=== PATIENT | male | born 1980 | race Caucasian/White ===

== ENCOUNTER 2019-11-18 10:30 | Observation (INO) | payer OTHER, SELFPAY ==
[2019-11-18] VITALS (17 sets, daily range): BP systolic 99–160; BP diastolic 56–83; PULSE 52–144; RESP 8–35; TEMP 36.5–37; O2SAT 96–100; BMI 30.8; BMI 31.5
--- NOTE | 2019-11-18 10:47 | DI.RAD.S_ITS ---
PROCEDURE: XR CHEST 1V INDICATIONS: syncope, new onset Afib TECHNIQUE: One view of the chest was acquired. COMPARISON: None. FINDINGS: Surgical changes and devices: None. Lungs and pleura: Lungs are clear. No pleural effusions or pneumothorax. Mediastinum: Mediastinal contours appear normal. Heart size is normal. Bones and chest wall: No suspicious bony lesions. Overlying soft tissues appear unremarkable. IMPRESSION: No acute cardiopulmonary process demonstrated radiographically. Dictated by: Aftab Hewitt M.D. on 11/18/2019 at 11:25 Approved by: Aftab Hewitt M.D. on 11/18/2019 at 11:26
[2019-11-18 11:02] LABS: Add Manual Diff / Slide Review NO; Basophils Absolute Auto 100 /uL (0-100); Basophils Percent Auto 1.3 % (0-2); Eosinophils Absolute Auto 400 /uL (0-450); Eosinophils Percent Auto 7.3 % (2-4); Hematocrit 46.1 % (41-53); Hemoglobin 15.4 g/dL (13.5-17.5); Lymphocytes Absolute Auto 1600 /uL (1100-4500); Lymphocytes Percent Auto 27.4 % (25-40); Mean Corpuscular HGB Conc 33.5 % (30-36); Mean Corpuscular Hemoglobin 30.4 PG (26-34); Mean Corpuscular Volume 90.7 fL (80-100); Monocytes Absolute Auto 700 /uL (0-900); Monocytes Percent Auto 11.5 % (3-14); Neutrophils Absolute Auto 3100 /uL (1500-7000); Neutrophils Percent Auto 52.5 % (50-75); Platelet Count 250 X10^3/uL (150-400); Red Blood Cell Count 5.08 X10^6/uL (4.5-5.9); Red Cell Distribution Width 12.4 % (11.6-14.8); White Blood Cell Count 5.9 X10^3/uL (4.5-11.0)
[2019-11-18] MEDS: SODIUM CHLORIDE 0.9% 1,000 ML 150 ML IV (11:05)
--- NOTE | 2019-11-18 11:07 | ED.SYNCOPE ---
HPI - Syncope General Chief Complaint: Syncope Stated Complaint: passed out Time Seen by Provider: 11/18/19 10:35 Source: patient Mode of arrival: Ambulatory Limitations: no limitations History of Present Illness HPI narrative: 39M nonsmoker without significant medical history presents to emergency department today with his in the chief complaint a syncopal episode this morning. He has felt a bit fatigued over the past few days he complains only of a scratchy throat prior to today. He woke up feeling approximately the same and after walking up a flight of stairs (with no dizziness or lightheadedness) he went to the bathroom and collapsed. His found him and states that he was briefly confused for less than 1 minute and then returned to his baseline. He denies any dietary change, new medications or supplements. He denies any caffeine, nicotine or alcohol. Related Data Home Medications Medication Instructions Recorded Confirmed escitalopram oxalate 20 mg PO BEDTIME 11/18/19 11/18/19 Allergies Allergy/AdvReac Type Severity Reaction Status Date / Time No Known Drug Allergies Allergy Verified 11/18/19 10:34 Review of Systems Constitutional Constitutional: Denies chills, Denies fatigue, Denies fever(s), Denies frequent falls, Denies lethargy and Denies weakness Eyes Eyes: Denies change in vision, Denies eye discharge, Denies irritation and Denies loss of vision ENT Ears, Nose, Mouth, and Throat: Denies change in voice, Denies dizziness, Denies neck pain, Denies sore throat and Denies throat swelling Cardiovascular Cardiovascular: Denies chest pain, Denies irregular heart rhythm, Reports lightheadedness, Denies palpitations, Denies dyspnea, Denies dyspnea on exertion and Denies orthopnea Respiratory Respiratory: Denies cough, Denies dyspnea, Denies dyspnea on exertion and Denies wheezing Gastrointestinal Gastrointestinal: Denies abdominal pain, Denies change in bowel habits, Denies diarrhea, Denies nausea and Denies vomiting Musculoskeletal Musculoskeletal: Denies neck pain and Denies numbness Integumentary/Breasts Skin/Breast: Denies pruritus, Denies erythema, Denies rash and Denies wounds Neurologic Neurologic: Denies behavioral changes, Denies confusion, Denies dizziness, Denies frequent falls, Denies loss of vision, Denies numbness and Denies weakness Psychiatric Psychiatric: Denies anxiety, Denies behavioral changes, Denies confusion, Denies depression, Denies homicidal ideation and Denies suicidal ideation Endocrine Endocrine: Denies fatigue, Denies flushing and Denies palpitations Hematologic/Lymphatic Hematologic/Lymphatic: Denies easy bruising Allergic/Immunologic Allergic/Immunologic: Denies urticaria, Denies throat swelling and Denies wheezing Patient History Medical History Anxiety (Acute) Depression (Acute) Surgical History History of endoscopy (Acute) Family History Father Heart attack Mother Diabetes mellitus Sister Husyrwc-Ymaqg-Hzodf disease Brother Healthy adult Brother Healthy adult Social History household members: spouse Smoking Status: Never smoker alcohol intake: current Smoking Status: Never smoker alcohol intake frequency: 0-2 drinks per day Substance Use Type: does not use Exam Narrative Exam Narrative: GENERAL: [39] year old patient appears stated age. Well-nourished, well-developed patient, in mild distress. HEAD: Atraumatic. Normocephalic. EYES: Pupils equal round and reactive. Extraocular motions intact. No scleral icterus. No injection or drainage. ENT: Nose without bleeding, purulent drainage. Throat without erythema, tonsillar hypertrophy or exudate. Airway patent. NECK: Trachea midline. Non tender CARDIOVASCULAR: Tachycardic and irregular without murmurs, gallops, or rubs. RESPIRATORY: Clear to auscultation. Breath sounds equal bilaterally. No wheezes, rales, or rhonchi. GASTROINTESTINAL: Abdomen soft, non-tender, nondistended. EXTREMITIES: No edema or joint tenderness. BACK: Nontender without deformity or crepitance. No flank tenderness. NEURO: AOx3. SKIN: No rash or erythema of visible areas Initial Vital Signs Initial Vital Signs: Vital Signs Temperature 97.7 F 11/18/19 10:34 Pulse Rate 62 11/18/19 10:34 Respiratory Rate 16 11/18/19 10:34 Blood Pressure 105/82 11/18/19 10:34 Pulse Oximetry 100 11/18/19 10:34 Course Orders Ordered: ED Orders 11/18/19 10:34 EKG-12 Lead Stat 11/18/19 10:47 XR chest 1V Stat 11/18/19 10:50 Complete Blood Count AUTO DIFF Stat Comprehensive Metabolic Panel Stat Magnesium Stat NT-proBNP (BNP-Adult 18+) Stat Prolactin Stat Prothrombin Time INR Stat TSH w/ Reflex to FT4 Stat Troponin & CK Cardiac Panel Stat 11/18/19 13:27 EC echo doppler complete Stat 11/18/19 14:05 Urinalysis and Microscopic Stat Urine Drug Screen, Rapid Stat Acetaminophen (Tylenol) 650 mg PO Q6HR PRN PRN Reason: Fever/Mild Pain (1-3) Al Hydrox/Mg Hydrox/Simethicone (Maalox Plus) 30 ml PO Q6HR PRN PRN Reason: Dyspepsia Apixaban (Eliquis) 5 mg PO BID SHINE Bisacodyl (Dulcolax) 10 mg [place] DAILY PRN PRN Reason: Constipation Calcium Carbonate (Tums) 1,000 mg PO Q4HR PRN PRN Reason: Dyspepsia Escitalopram Oxalate (Lexapro) 20 mg PO BEDTIME SHINE DILTIAZEM (Diltiazem 125 Mg/125 Ml-[id number]) 125 mg in 125 mls @ 5 mls/hr IV TITRATE SHINE; Protocol Last Titration: 11/18/19 15:18 Dose: 7 mg/hr, 7 mls/hr Documented by: Titration: 11/18/19 13:30 Dose: 10 mg/hr, 10 mls/hr Documented by: Titration: 11/18/19 13:23 Dose: 5 mg/hr, 5 mls/hr Documented by: Admin: 11/18/19 12:01 Dose: 5 mg/hr, 5 mls/hr Documented by: ROBERTO Magnesium Hydroxide (Milk Of Magnesia) 30 ml PO DAILY PRN PRN Reason: Constipation Metoprolol Tartrate (Lopressor) 25 mg PO Q6H [facility] Last Admin: 11/18/19 19:10 Dose: Not Given Documented by: Admin: 11/18/19 14:02 Dose: 25 mg Documented by: REYNOLD Naloxone HCl (Narcan) 0.2 mg IV Q2MIN PRN PRN Reason: Opiate Reversal Ondansetron HCl (Zofran) 4 mg IV Q4HR PRN PRN Reason: Nausea And Vomiting Discontinued Medications Apixaban (Eliquis) 5 mg PO NOW ONE Stop: 11/18/19 11:44 Last Admin: 11/18/19 12:01 Dose: 5 mg Documented by: ROBERTO Sodium Chloride (Normal Saline 0.9%) 1,000 mls @ 150 mls/hr IV CONT SHINE Last Infusion: 11/18/19 13:23 Dose: 150 mls/hr Documented by: Admin: 11/18/19 11:05 Dose: 150 mls/hr Documented by: ROBERTO Consultations Consultation #1: discussion with manager environmental affairs cardiology (Morris) who recommends admission, tele, echo, dilt drip, eliquis and will see him as an outpatient patient PCP called also Consultation #2: hospitalist happy to accept Vital Signs Vital signs: Vital Signs - 8 hr 11/18/19 11:57 11/18/19 12:00 11/18/19 12:07 Pulse Rate 144 H 114 H 128 H Respiratory Rate 13 8 L 18 Blood Pressure 119/73 Pulse Oximetry 98 97 98 11/18/19 12:23 11/18/19 12:25 Pulse Rate 108 H 102 H Respiratory Rate 20 18 Blood Pressure 136/79 136/79 Pulse Oximetry 98 96 MDM - Syncope Lab Data Result diagrams: 11/18/19 10:50 11/18/19 10:50 Labs: Lab Results 11/18/19 11/18/19 11/18/19 Range/Units 10:50 10:50 10:50 WBC 5.9 (4.5-11.0) X10^3/uL RBC 5.08 (4.5-5.9) X10^6/uL Hgb 15.4 (13.5-17.5) g/dL Hct 46.1 (41-53) % MCV 90.7 (80-100) fL MCH 30.4 (26-34) PG MCHC 33.5 (30-36) % RDW 12.4 (11.6-14.8) % Plt Count 250 (150-400) X10^3/uL Neut % (Auto) 52.5 (50-75) % Lymph % (Auto) 27.4 (25-40) % [place] % (Auto) 11.5 (3-14) % Eos % (Auto) 7.3 H (2-4) % Baso % (Auto) 1.3 (0-2) % Neut # (Auto) 3100 (4197-2353) /uL Lymph # (Auto) 1600 (6714-1919) /uL [place] # (Auto) 700 (0-900) /uL Eos # (Auto) 400 (0-450) /uL Baso # (Auto) 100 (0-100) /uL PT 10.9 (10.1-12.7) SECONDS INR 1.0 (0.9-1.3) Sodium (137-145) mmol/L Potassium (3.4-5.1) mmol/L Chloride (98-107) mmol/L Carbon Dioxide (22-32) mmol/L BUN (9-20) mg/dL Creatinine (0.66-1.25) mg/dL Estimated GFR (>60) mL/min BUN/Creatinine Ratio (6-22) Glucose (70-100) mg/dL Calcium (8.4-10.2) mg/dL Magnesium 2.0 (1.6-2.3) mg/dL Total Bilirubin (0.2-1.3) mg/dL AST (17-59) IU/L ALT (<50) IU/L Alkaline Phosphatase (38-126) U/L Total Creatine Kinase (55-170) U/L CK-MB (CK-2) CK-MB (CK-2) Rel Index Troponin I (0.01-0.034) ng/mL NT-Pro-B Natriuret Pep 24 (<125) pg/mL Total Protein (6.3-8.2) g/dL Albumin (3.5-5.0) g/dL Globulin (1.7-4.1) g/dL Albumin/Globulin Ratio (1.0-2.8) TSH (0.47-4.68) uIU/mL Prolactin 15.4 (3.7-17.9) ng/mL COVID-19 PCR (Negative) 11/18/19 11/18/19 11/18/19 Range/Units 10:50 10:50 12:15 WBC (4.5-11.0) X10^3/uL RBC (4.5-5.9) X10^6/uL Hgb (13.5-17.5) g/dL Hct (41-53) % MCV (80-100) fL MCH (26-34) PG MCHC (30-36) % RDW (11.6-14.8) % Plt Count (150-400) X10^3/uL Neut % (Auto) (50-75) % Lymph % (Auto) (25-40) % [place] % (Auto) (3-14) % Eos % (Auto) (2-4) % Baso % (Auto) (0-2) % Neut # (Auto) (4158-4057) /uL Lymph # (Auto) (0342-6970) /uL [place] # (Auto) (0-900) /uL Eos # (Auto) (0-450) /uL Baso # (Auto) (0-100) /uL PT (10.1-12.7) SECONDS INR (0.9-1.3) Sodium 138 (137-145) mmol/L Potassium 4.2 (3.4-5.1) mmol/L Chloride 104 (98-107) mmol/L Carbon Dioxide 29 (22-32) mmol/L BUN 17 (9-20) mg/dL Creatinine 1.02 (0.66-1.25) mg/dL Estimated GFR > 60.0 (>60) mL/min BUN/Creatinine Ratio 16.7 (6-22) Glucose 79 (70-100) mg/dL Calcium 9.8 (8.4-10.2) mg/dL Magnesium (1.6-2.3) mg/dL Total Bilirubin 0.7 (0.2-1.3) mg/dL AST 29 (17-59) IU/L ALT 30 (<50) IU/L Alkaline Phosphatase 47 (38-126) U/L Total Creatine Kinase 97 (55-170) U/L CK-MB (CK-2) TNP CK-MB (CK-2) Rel Index TNP Troponin I < 0.012 (0.01-0.034) ng/mL NT-Pro-B Natriuret Pep (<125) pg/mL Total Protein 7.0 (6.3-8.2) g/dL Albumin 4.3 (3.5-5.0) g/dL Globulin 2.7 (1.7-4.1) g/dL Albumin/Globulin Ratio 1.6 (1.0-2.8) TSH 2.98 (0.47-4.68) uIU/mL Prolactin (3.7-17.9) ng/mL COVID-19 PCR Negative (Negative) Point of Care Testing Glucose POC 92 Urine Dip Bedside Urine Glucose Negative Bedside Urine Bilirubin - Negative Bedside Urine Ketone - Negative Urine Specific [place] 1.015 Bedside Urine Occult Blood - Negative Bedside Urine pH 6.0 Bedside Urine Protein - Negative Bedside Urine Urobilinogen - Negative Bedside Urine Nitrite - Negative Bedside Urine Leukocytes - Negative Esterase Critical Care Time Critical Care Time Critical Care Time: Yes Total Critical Care Time: 30 Attestation: The high probability of a clinically significant, sudden or life threatening deterioration of the [CV] system(s) required my full and direct attention, intervention and personal management. The aggregate critical care time was [30] minutes. This time is in addition to time spent performing reported procedures but includes the following: [X] Data Review and interpretation [X] Patient assessment and monitoring of vital signs [X] Documentation [X] Medication orders and management Discharge Plan Departure Patient Disposition: Admitted as Observation Clinical Impression: Atrial fibrillation with RVR Syncope Qualifiers: Syncope type: unspecified Qualified Code(s): R55 - Syncope and collapse Discharge Date/Time: 11/18/19 13:28 Instructions: DI for Atrial Flutter, Apixaban Admit Date/Time: 11/18/19 12:27 Admit Provider: Gloria Barahona
[2019-11-18 11:09] LABS: Prothrombin Time 10.9 SECONDS (10.1-12.7)
[2019-11-18 11:16] LABS: Alanine Aminotransferase 30 IU/L (<50); Albumin 4.3 g/dL (3.5-5.0); Albumin Globulin Ratio 1.6 (1.0-2.8); Alkaline Phosphatase 47 U/L (38-126); Aspartate Aminotransferase 29 IU/L (17-59); BUN Creatinine Ratio 16.7 (6-22); Bilirubin Total 0.7 mg/dL (0.2-1.3); Blood Urea Nitrogen 17 mg/dL (9-20); Calcium 9.8 mg/dL (8.4-10.2); Carbon Dioxide 29 mmol/L (22-32); Chloride 104 mmol/L (98-107); Creatine Kinase 97 U/L (55-170); Estimated Glomerular Filt Rate > 60.0 mL/min (>60); Globulin 2.7 g/dL (1.7-4.1); Glucose 79 mg/dL (70-100); HEMOLYSIS < 15 (0-50); Potassium 4.2 mmol/L (3.4-5.1); Sodium 138 mmol/L (137-145)
[2019-11-18 11:24] LABS: NT-proBNP (BNP-Adult 18+) 24 pg/mL (<125)
[2019-11-18 11:27] LABS: Troponin I < 0.012 ng/mL (0.01-0.034)
[2019-11-18 11:32] LABS: Prolactin 15.4 ng/mL (3.7-17.9)
[2019-11-18] MEDS: DILTIAZEM 125 MG/125 ML PIGGYBACK IV (12:01)
[2019-11-18] MEDS: APIXABAN 5 MG TABLET PO ×2 (12:01→21:28)
[2019-11-18 13:11] LABS: COVID19 -Nasal RAPID Negative (Negative)
[2019-11-18] MEDS: METOPROLOL IR 25 MG TABLET PO (14:02)
[2019-11-18 14:27] LABS: Bacteria Urine None Seen; RBC Urine None Seen (0-5/HPF); WBC Urine None Seen (0-5/HPF)
--- NOTE | 2019-11-18 14:28 | DI.ECHO.S_ITS ---
Echocardiogram Report + + :Name: DELVIS THAO Study Date: 11/18/2019 Height: 74 in : :Hospital Weight: 240 lb : : Gender: Male BSA: 2.3 m2 : :: 1980 Age: 39 yrs BP: 103/70 mmHg: :Reason For Study: AFIB : :Ordering Physician: [place] : :Hospitalist Performed By: Kimberly Ferrer : :Referring: RESHMA FOLEY : + + Interpretation Summary The left ventricle is normal in size. Left ventricular ejection fraction is estimated to be 55 +/- 5%. The right ventricle is mildly dilated. Right ventricular systolic function is at the lower limits of normal. No significant valvular pathology seen. The IVC is of normal diameter and collapses greater than 50% with a sniff. This suggests a low right atrial pressure of 3 mm Hg. Procedure: A two-dimensional transthoracic echocardiogram with color flow and Doppler was performed. The study quality was technically adequate. There is no prior echocardiogram noted for this patient. The patient was in atrial fibrillation with heart rates between 60-75 bpm during the exam. Left Ventricle: The left ventricle is normal in size. There is mild concentric left ventricular hypertrophy. There is no thrombus. Left ventricular ejection fraction is estimated to be 55 +/- 5%. There are no focal wall motion abnormalities. Diastolic function could not be accurately assessed due to atrial fibrillation. Right Ventricle: The right ventricle is mildly dilated. Right ventricular systolic function is at the lower limits of normal. Atria: Both atria are normal in size. There is no Doppler evidence for an interatrial shunt. Mitral Valve: The mitral valve is normal in structure and function. There is trace mitral regurgitation. Aortic Valve: The aortic valve is trileaflet. The aortic valve opens well. There is no aortic valve stenosis. No aortic regurgitation is present. Tricuspid Valve: The tricuspid valve is normal. Pulmonary artery pressures cannot be estimated because of the lack of a measurable TR jet velocity but the IVC suggests a CVP of around 3 mmHg. There is trace tricuspid regurgitation. Pulmonic Valve: The pulmonic valve leaflets are thin and pliable; valve motion is normal. There is mild pulmonic regurgitation. Great Vessels: The aortic root is normal size. The dimensions of the ascending aorta are normal. The IVC is of normal diameter and collapses greater than 50% with a sniff. This suggests a low right atrial pressure of 3 mm Hg. Pericardium/ Pleura There is no pericardial effusion. There is no pleural effusion. MMode/2D Measurements & Calculations LVIDd: 4.4 cm LVOT diam: 2.3 cm LVIDs: 3.2 cm Ao root diam: 3.2 cm FS: 26.7 % asc Aorta Diam: 3.0 cm EPSS: 1.3 cm Ao Arch Diam (Prox Trans): 2.4 cm IVSd: 1.2 cm LVPWd: 0.86 cm LV carrillo. diameter/BSA (cm/m^2): 1.9 LV sys. diameter/BSA (cm/m^2): 1.4 LA A2 area: 16.7 cm2 RA long axis: 4.9 cm LA A4 area: 15.6 cm2 RA area: 16.8 cm2 LA length (vol): 4.5 cm RA vol: 48.5 ml LA vol: 49.2 ml RA : 20.6 ml/m2 LA vol index: 21.0 ml/m2 IVC diam: 1.4 cm RVD1 (basal): 4.0 cm TAPSE: 2.1 cm Doppler Measurements & Calculations Ao V2 max: 93.3 cm/sec LVOT Max Xavier: 83.6 cm/sec Ao V2 mean: 62.6 cm/sec LV V1 max P.8 mmHg Ao max P.5 mmHg LV V1 VTI: 15.2 cm Ao mean P.8 mmHg KIRAN(I,D): 3.5 cm2 Ao V2 VTI: 18.3 cm KIRAN(V,D): 3.8 cm2 sev ratio: 0.83 KIRAN indexed to BSA (cm^2/m^2): 1.5 MV E max xavier: 70.7 cm/sec PA V2 max: 48.4 cm/sec Med Peak E' Xavier: 13.1 cm/sec PA V2 mean: 36.1 cm/sec E/E' med: 5.4 PA mean P.57 mmHg Lat Peak E' Xavier: 18.1 cm/sec PA pr(Accel): 29.3 mmHg E/E' lat: 3.9 E/e' average: 4.7 MV dec time: 0.22 sec SV(LVOT): 64.2 ml Reading Physician:03:42 PM
[2019-11-18 14:30] LABS: TSH w/ Reflex to FT4 2.98 uIU/mL (0.47-4.68)
[2019-11-18 14:31] LABS: Appearance Urine UA CLEAR; Bilirubin Urine UA NEGATIVE (NEGATIVE); Color Urine UA YELLOW; Glucose Urine UA NEGATIVE (Negative); Ketones Urine UA NEGATIVE (NEGATIVE); Leukocyte Esterase Urine UA NEGATIVE (NEGATIVE); Nitrite Urine UA NEGATIVE (Negative); Occult Blood Urine UA NEGATIVE (Negative); Protein Urine UA NEGATIVE (Negative); Specific Gravity Urine UA <=1.005 (1.000-1.035); Urobilinogen Urine UA 0.2 E.U./dL (0.2); pH Urine UA 6.5 (4.5-8.0)
[2019-11-18 14:44] LABS: Culture Indicated Urine Cult Not Indicated
[2019-11-18 14:48] LABS: UR Morphine/Opiate cutoff 300 Negative (Negative); Ur Creatinine Normal (Normal); Ur Specific Gravity Normal (Normal); Urine Amphetamines Negative (Negative); Urine Barbiturates Negative (Negative); Urine Benzodiazepines Negative (Negative); Urine Cocaine Negative (Negative); Urine MDMA Negative (Negative); Urine Methadone Negative (Negative); Urine Methamphetamines Negative (Negative); Urine Oxycodone Negative (Negative); Urine Phencyclidine Negative (Negative); Urine Tetrahydrocannabinol Negative (Negative); Urine Tricyclic Antidepressant Negative (Negative); Urine pH Normal (Normal)
--- NOTE | 2019-11-18 14:58 | PC.NURSE ---
Admit Note Pt arrived to room 229 at 1325 from ER. Walked self from stretcher to bed, steady on feet. Two large areas of erythema to back from falling in bathroom - fell while urinating in the bathroom, felt short of breath at the time. Currently denies shortness of breath and denies chest pain. No dizziness reported. Afib RVR in the 120s on arrival, diltiazem gtt infusing at 5 mg/hr, increased to 10 mg/hr. Metoprolol PO administered per MD order. HR now in the 60-70s, remains in afib. Oriented to room and to bed/tv/call light controls. Denies to lock up any valuables in safe. Call light within reach.
--- NOTE | 2019-11-18 15:46 | P.HP_ITS ---
History of Present Illness History of Present Illness Date Patient Seen: 11/18/19 Chief complaint: passed out Narrative: Dk Storm is a 39-year-old male with a past medical history significant for depression and anxiety who presented to the ED after having a syncopal episode at home. The patient reports that he woke up in his normal state of health and was downstairs talking to work when he decided to go back up stairs and lay down as he was still tired. He went to the bathroom and then awoke in the bath tub. His reports she heard a fall and came in to find him in the bathtub moaning. He believes he lost consciousness but does not believe he injured his head. He has an abrasion on his back and reports his back is tender. When he arrived to the emergency department he was found to be in atrial fibrillation with RVR. He endorses mild fluttering in his chest that he noticed starting on the way to the hospital. He has never been diagnosed atrial fibrillation previously. He has no other complaints and denies vision changes, lightheadedness or dizziness, chest pain or pressure, shortness of breath, abdominal pain, nausea, vomiting, fever, chills, dysuria, diarrhea or constipation. He reports he recently had a mild sore throat which has now resolved. He also reports several episodes over the last couple weeks of fleeting shortness of breath and feeling winded while speaking that occurred while at work and he assumed was related to wearing a mask. He has no other complaints. ED course: The patient was found to be in atrial fibrillation with RVR and heart rate in the 140s. ED physician spoke with cardiology who recommended diltiazem gtt and blood thinner. The the patient's laboratory evaluation was unremarkable including CBC, CMP, magnesium, and urinalysis. EKG demonstrated atrial fibrillation without acute ischemic changes such as ST elevation or depression. The patient was started on diltiazem gtt and given a dose of Eliquis 5 mg x 1. The patient is being admitted observation for atrial fibrillation with RVR and syncopal episode. Patient History Medical History Anxiety (Acute) Depression (Acute) Surgical History History of endoscopy (Acute) Family & Social History Family History Father Heart attack Mother Diabetes mellitus Sister Beisekz-Qiele-Bjoty disease Brother Healthy adult Brother Healthy adult Safety & Behavioral: Feels Safe in Current Yes Environment Been Physically Hurt or No Threatened By a Person Tobacco & Substance use: Smoking Status Never smoker alcohol intake frequency None Substance Use Type None Meds Home Medications and Allergies Home Medications Medication Instructions Recorded Confirmed Type escitalopram oxalate 20 mg PO BEDTIME 11/18/19 11/18/19 History Allergies Allergy/AdvReac Type Severity Reaction Status Date / Time No Known Drug Allergies Allergy Verified 11/18/19 10:34 Review of Systems Review of Systems Narrative: A 10 system comprehensive review of systems was conducted with the patient and found to be negative except as above in the History of Present Illness. Exam Vital Signs (past 8 hours): - 11/18/19 10:34 11/18/19 11:10 11/18/19 11:57 Temperature 97.7 F Pulse Rate 62 111 H 144 H Respiratory Rate 16 20 13 Blood Pressure 105/82 113/83 Pulse Oximetry 100 96 98 11/18/19 12:00 11/18/19 12:07 11/18/19 12:23 Temperature Pulse Rate 114 H 128 H 108 H Respiratory Rate 8 L 18 20 Blood Pressure 119/73 136/79 Pulse Oximetry 97 98 98 11/18/19 12:25 11/18/19 12:30 11/18/19 12:31 Temperature Pulse Rate 102 H 141 H 119 H Respiratory Rate 18 35 H 19 Blood Pressure 136/79 160/71 H Pulse Oximetry 96 97 98 11/18/19 12:46 11/18/19 13:00 Temperature Pulse Rate 123 H 97 H Respiratory Rate 25 H 16 Blood Pressure 128/56 L 129/68 Pulse Oximetry 98 97 Oxygen Delivery Method Room Air Narrative Exam Narrative: General: Young male sitting in bed and in no acute distress, well-developed, well-nourished, appropriately interactive. HEENT: Normocephalic, atraumatic. External ears without defect. Pupils equal, round, and reactive to light. Anicteric sclerae, moist conjunctivae, and no lid lag. Oropharynx free of erythema and cobble stoning with moist mucosa. Neck: Supple with full range of motion. No jugular venous distension. No bruits. No lymphadenopathy or thyromegaly. Cardiovascular: Irregularly irregular without murmurs, rubs, or gallops appreciated Pulmonary: Clear to auscultation bilaterally without crackles, wheezes, or rhonchi. Normal respiratory effort with no use of accessory muscles. Abdomen: Soft, bowel sounds present, nontender, nondistended. No hepatosplenome gómez or masses appreciated. Extremities: No clubbing, cyanosis, or edema. Skin: Normal temperature, turgor, and texture; no rash, ulcers, or subcutaneous nodules appreciated. 10 cm abrasion/scrape on right side of back without skin tear. Neurological: Cranial nerves grossly intact. Normal muscle strength, tone, and bulk. Reflexes, coordination, and sensory function within normal limits. No known gait impairment. Psychiatric: Normal mood and affect. Alert and oriented to person, place, and ti me. Objective Labs Result Diagrams: 11/18/19 10:50 11/18/19 10:50 Labs: Laboratory Results - last 24 hr 11/18/19 11/18/19 11/18/19 10:50 10:50 10:50 WBC 5.9 RBC 5.08 Hgb 15.4 Hct 46.1 MCV 90.7 MCH 30.4 MCHC 33.5 RDW 12.4 Plt Count 250 Neut % (Auto) 52.5 Lymph % (Auto) 27.4 [place] % (Auto) 11.5 Eos % (Auto) 7.3 H Baso % (Auto) 1.3 Neut # (Auto) 3100 Lymph # (Auto) 1600 [place] # (Auto) 700 Eos # (Auto) 400 Baso # (Auto) 100 PT 10.9 INR 1.0 Sodium Potassium Chloride Carbon Dioxide BUN Creatinine Estimated GFR BUN/Creatinine Ratio Glucose Calcium Magnesium 2.0 Total Bilirubin AST ALT Alkaline Phosphatase Total Creatine Kinase CK-MB (CK-2) CK-MB (CK-2) Rel Index Troponin I NT-Pro-B Natriuret Pep 24 Total Protein Albumin Globulin Albumin/Globulin Ratio Prolactin 15.4 COVID-19 PCR 11/18/19 11/18/19 10:50 12:15 WBC RBC Hgb Hct MCV MCH MCHC RDW Plt Count Neut % (Auto) Lymph % (Auto) [place] % (Auto) Eos % (Auto) Baso % (Auto) Neut # (Auto) Lymph # (Auto) [place] # (Auto) Eos # (Auto) Baso # (Auto) PT INR Sodium 138 Potassium 4.2 Chloride 104 Carbon Dioxide 29 BUN 17 Creatinine 1.02 Estimated GFR > 60.0 BUN/Creatinine Ratio 16.7 Glucose 79 Calcium 9.8 Magnesium Total Bilirubin 0.7 AST 29 ALT 30 Alkaline Phosphatase 47 Total Creatine Kinase 97 CK-MB (CK-2) TNP CK-MB (CK-2) Rel Index TNP Troponin I < 0.012 NT-Pro-B Natriuret Pep Total Protein 7.0 Albumin 4.3 Globulin 2.7 Albumin/Globulin Ratio 1.6 Prolactin COVID-19 PCR Negative Assessment & Plan Assessment & Plan narrative: Dk Storm is a 39-year-old male with a past medical history significant for depression and anxiety who presented to the ED after having a syncopal episode at home. 1. Newly diagnosed atrial fibrillation with RVR, present on admission. Active. -Patient presented after having unwitnessed syncopal episode at home with brief loss of consciousness and no head injury. -EKG demonstrated atrial fibrillation with controlled ventricular rate of 100 home without acute ischemic changes such as ST elevation or depression. Continue to monitor closely on telemetry. -Patient was started on diltiazem gtt in ED. Started metoprolol tartrate 25 mg every 6 hours and will titrate to effect. Slowly titrate off of diltiazem gtt as heart rate allows. -Received Eliquis 5 mg x 1 in ED. CHADS2 Vasc score is 0 indicative of low risk of VTE. Discussed anticoagulation and risk of VTE based on current parameters. Patient would like some time to consider long-term anticoagulation and awaiting echocardiogram and diabetic assessment for full risk assessment. -Risk stratify with hemoglobin A1c and fasting lipid panel ordered for tomorrow morning labs and pending. -Electrolytes within normal limits with potassium 4.2 and magnesium 2.0. Continue to monitor electrolytes and replete if necessary. -TSH within normal limits at 2.98. -Ordered echocardiogram, pending. -Recommend outpatient sleep study to evaluate for EVA and treatment if present. 2. Acute syncopal episode, not present on admission. Resolved. -Patient had unwitnessed syncopal episode with brief loss of consciousness and without head injury. -Possibly reflexive in secondary to vasovagal syncope versus atrial fibrillation with RVR. -Continue to monitor closely on telemetry. -Continue to treat atrial fibrillation as above. 3. Depression with anxiety, chronic, present on admission. Stable. -Continue escitalopram 20 mg daily at bedtime. Code status: Full code, surrogate decision maker is designated as patient's spouse Divina Storm VTE prophylaxis: Zoequrandolph SCDs Patient is admitted under observation status with expected length of stay less than 2 midnights due to severity of presenting symptoms, risk of adverse event, and complexity of treatment plan.
--- NOTE | 2019-11-18 18:53 | PC.NURSE ---
Addendum entered by Prabha Young R.N. 11/18/19 19:00: [id number] pt converted to SR with a heart rate of 60, Provider notified, no new orders Original Note: Evening shift note: Pt resting in bed, with at bedside. Diltiazem gtt infusing at 10mg/hr, NS infusing at 150ml/hr. Heart rate currently AFib HR in 45-60's, pt asymptomatic. Titrated Dilt gtt to 7ml/hr as HR began staying down in the 40-[address] Barahona at bedside, orders given to stop Dilt gtt at 1627 for HR staying at 44. All current questions answered, no further needs at this time, bed low and locked, call light within reach, will continue to monitor.
[2019-11-18] MEDS: ESCITALOPRAM 10 MG TABLET 20 MG PO (21:28)
[2019-11-19 00:33] VITALS: BP 114/67; PULSE 67; RESP 12; TEMP 36.4; O2SAT 99
[2019-11-19 04:45] VITALS: BP 123/68; PULSE 63; RESP 12; TEMP 36.2; O2SAT 96
[2019-11-19 05:16] LABS: Cholesterol 234 mg/dL (140-199); HDL Cholesterol 31 mg/dL (40-60); Hemoglobin A1C% w Est Avg Glu 5.1 % (4.0-6.0); LDL Cholesterol Calculated 157 mg/dL (<100); Triglycerides 228 mg/dL (35-150)
--- NOTE | 2019-11-19 06:36 | PC.NURSE ---
Pt alert and oriented x3. Denies chest pain or SOB. Denies any pain, reports on slight discomfort on back. SBA. No complaints
[2019-11-19 06:44] VITALS: BP 133/79; PULSE 60
[2019-11-19] MEDS: METOPROLOL IR 25 MG TABLET PO (06:44)
[2019-11-19 08:07] VITALS: BP 101/57; PULSE 66; RESP 12; TEMP 36.6; O2SAT 99
--- NOTE | 2019-11-19 08:31 | P.DS_ITS ---
History of Present Illness History of Present Illness Date Patient Seen: 11/19/19 Chief complaint: passed out Narrative: Dk Storm is a 39-year-old male with a past medical history si gnificant for depression and anxiety who presented to the ED after having a syncopal episode at home. The patient reports that he woke up in his normal state of health and was downstairs talking to work when he decided to go back up stairs and lay down as he was still tired. He went to the bathroom and then awoke in the bath tub. His reports she heard a fall and came in to find him in the bathtub moaning. He believes he lost consciousness but does not believe he injured his head. He has an abrasion on his back and reports his back is tender. When he arrived to the emergency department he was found to be in atrial fibrillation with RVR. He endorses mild fluttering in his chest that he noticed starting on the way to the hospital. He has never been diagnosed atrial fibrillation previously. He has no other complaints and denies vision changes, lightheadedness or dizziness, chest pain or pressure, shortness of breath, abdominal pain, nausea, vomiting, fever, chills, dysuria, diarrhea or constipation. He reports he recently had a mild sore throat which has now resolved. He also reports several episodes over the last couple weeks of fleeting shortness of breath and feeling winded while speaking that occurred while at work and he assumed was related to wearing a mask. He has no other complaints. ED course: The patient was found to be in atrial fibrillation with RVR and heart rate in the 140s. ED physician spoke with cardiology who recommended diltiazem gtt and blood thinner. The the patient's laboratory evaluation was unremarkable including CBC, CMP, magnesium, and urinalysis. EKG demonstrated atrial fibrillation without acute ischemic changes such as ST elevation or depression. The patient was started on diltiazem gtt and given a dose of Eliquis 5 mg x 1. The patient is being admitted observation for atrial fibrillation with RVR and syncopal episode. Discharge Providers Provider Date of admission: 11/18/19 12:27 Discharge Date: 11/19/19 Discharge provider: Oumou More MD Summary Hospital Course Discharge Diagnosis: 1. Atrial fibrillation with rapid ventricular response r ate, now resolved 2. Depression 3. Anxiety 4. Hyperlipidemia Hospital Course: Patient is a 39-year-old male who presented to the hospital with syncopal episode associated with atrial fibrillation. Patient had a heart rate of 140. He was initially placed on a Cardizem drip. Patient was subsequently transition to to metoprolol, 25 Q 6. In addition he was started on Eliquis. The patient received 1 dose of metoprolol yesterday, 1 dose today. He spontaneously converted to sinus rhythm. His 3 additional doses were held as his heart rate was in the 50s. He has had no recurrence of his atrial fibrillation. The patient denies any chest pain. He denies any shortness of breath. The patient underwent a cardiac echo. The echo revealed left ventr icular ejection fraction of 55+/-5%, the right ventricle is mildly dilated, right ventricular systolic function is at the lower limits of normal, no significant valvular pathology was seen, IVC is of normal diameter and collapses greater than 50% with sniff suggesting a low right atrial pressure., there are no focal wall motion abnormalities, there is no thrombus, there is mild left ventricular hypertrophy. The patient is in the . 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 He also will be referred to cardiology here and [facility] Dr. Valdes for further evaluation. Status at Discharge Cognitive/behavioral status at discharge: oriented Functional status at discharge: independent ambulation Overall status at discharge: patient is back to baseline Time Spent with Patient Time spent: Less than 30 minutes Exam Vital Signs (past 8 hours): - 11/19/19 00:33 11/19/19 04:45 11/19/19 06:44 Temperature 97.6 F 97.1 F L Pulse Rate 67 63 60 Respiratory Rate 12 12 Blood Pressure 114/67 123/68 133/79 Pulse Oximetry 99 96 11/19/19 08:07 Temperature 97.8 F Pulse Rate 66 Respiratory Rate 12 Blood Pressure 101/57 L Pulse Oximetry 99 Oxygen Delivery Method Room Air Oxygen Flow Rate 0 Narrative Exam Narrative: Pleasant gentleman resting comfortably in no obvious distress Lungs: Clear to auscultation Cardiac exam: Regular rate and rhythm normal S1-S2 Abdomen: Soft nontender nondistended Extremities: No edema Objective Labs Result Diagrams: 11/18/19 10:50 11/18/19 10:50 Labs: Laboratory Results - last 24 hr 07/01/2911/18/19 11/18/19 10:50 10:50 10:50 WBC 5.9 RBC 5.08 Hgb 15.4 Hct 46.1 MCV 90.7 MCH 30.4 MCHC 33.5 RDW 12.4 Plt Count 250 Neut % (Auto) 52.5 Lymph % (Auto) 27.4 [place] % (Auto) 11.5 Eos % (Auto) 7.3 H Baso % (Auto) 1.3 Neut # (Auto) 3100 Lymph # (Auto) 1600 [place] # (Auto) 700 Eos # (Auto) 400 Baso # (Auto) 100 PT 10.9 INR 1.0 Sodium Potassium Chloride Carbon Dioxide BUN Creatinine Estimated GFR BUN/Creatinine Ratio Glucose Hemoglobin A1c Calcium Magnesium 2.0 Total Bilirubin AST ALT Alkaline Phosphatase Total Creatine Kinase CK-MB (CK-2) CK-MB (CK-2) Rel Index Troponin I NT-Pro-B Natriuret Pep 24 Total Protein Albumin Globulin Albumin/Globulin Ratio Triglycerides Cholesterol LDL Cholesterol, Calc HDL Cholesterol TSH Prolactin 15.4 Urine Color Urine Appearance Urine pH Ur Specific [place] Urine Protein Urine Glucose (UA) Urine Ketones Urine Occult Blood Urine Nitrate Urine Bilirubin Urine Urobilinogen Ur Leukocyte Esterase Urine RBC Urine WBC Urine Bacteria Ur Culture Indicated? Nasal Screen MRSA (PCR) U Opiates 300ng/mL cut Ur Oxycodone Screen Urine Methadone Screen Ur Barbiturates Screen U Tricyclic Antidepress Ur Phencyclidine Scrn Ur Amphetamines Screen U Methamphetamines Scrn Ur MDMA Scrn (Ecstasy) U Benzodiazepines Scrn Urine Cocaine Screen U Marijuana (THC) Screen COVID-19 PCR 11/18/19 11/18/19 11/18/19 10:50 10:50 12:15 WBC RBC Hgb Hct MCV MCH MCHC RDW Plt Count Neut % (Auto) Lymph % (Auto) [place] % (Auto) Eos % (Auto) Baso % (Auto) Neut # (Auto) Lymph # (Auto) [place] # (Auto) Eos # (Auto) Baso # (Auto) PT INR Sodium 138 Potassium 4.2 Chloride 104 Carbon Dioxide 29 BUN 17 Creatinine 1.02 Estimated GFR > 60.0 BUN/Creatinine Ratio 16.7 Glucose 79 Hemoglobin A1c Calcium 9.8 Magnesium Total Bilirubin 0.7 AST 29 ALT 30 Alkaline Phosphatase 47 Total Creatine Kinase 97 CK-MB (CK-2) TNP CK-MB (CK-2) Rel Index TNP Troponin I < 0.012 NT-Pro-B Natriuret Pep Total Protein 7.0 Albumin 4.3 Globulin 2.7 Albumin/Globulin Ratio 1.6 Triglycerides Cholesterol LDL Cholesterol, Calc HDL Cholesterol TSH 2.98 Prolactin Urine Color Urine Appearance Urine pH Ur Specific [place] Urine Protein Urine Glucose (UA) Urine Ketones Urine Occult Blood Urine Nitrate Urine Bilirubin Urine Urobilinogen Ur Leukocyte Esterase Urine RBC Urine WBC Urine Bacteria Ur Culture Indicated? Nasal Screen MRSA (PCR) U Opiates 300ng/mL cut Ur Oxycodone Screen Urine Methadone Screen Ur Barbiturates Screen U Tricyclic Antidepress Ur Phencyclidine Scrn Ur Amphetamines Screen U Methamphetamines Scrn Ur MDMA Scrn (Ecstasy) U Benzodiazepines Scrn Urine Cocaine Screen U Marijuana (THC) Screen COVID-19 PCR Negative 11/18/19 11/18/19 11/18/19 14:05 14:05 14:05 WBC RBC Hgb Hct MCV MCH MCHC RDW Plt Count Neut % (Auto) Lymph % (Auto) [place] % (Auto) Eos % (Auto) Baso % (Auto) Neut # (Auto) Lymph # (Auto) [place] # (Auto) Eos # (Auto) Baso # (Auto) PT INR Sodium Potassium Chloride Carbon Dioxide BUN Creatinine Estimated GFR BUN/Creatinine Ratio Glucose Hemoglobin A1c Calcium Magnesium Total Bilirubin AST ALT Alkaline Phosphatase Total Creatine Kinase CK-MB (CK-2) CK-MB (CK-2) Rel Index Troponin I NT-Pro-B Natriuret Pep Total Protein Albumin Globulin Albumin/Globulin Ratio Triglycerides Cholesterol LDL Cholesterol, Calc HDL Cholesterol TSH Prolactin Urine Color Yellow Urine Appearance Clear Urine pH 6.5 Ur Specific [place] <=1.005 Urine Protein Negative Urine Glucose (UA) Negative Urine Ketones Negative Urine Occult Blood Negative Urine Nitrate Negative Urine Bilirubin Negative Urine Urobilinogen 0.2 Ur Leukocyte Esterase Negative Urine RBC None seen Urine WBC None seen Urine Bacteria None seen Ur Culture Indicated? Cult not indicated Nasal Screen MRSA (PCR) Negative for mrsa U Opiates 300ng/mL cut Negative Ur Oxycodone Screen Negative Urine Methadone Screen Negative Ur Barbiturates Screen Negative U Tricyclic Antidepress Negative Ur Phencyclidine Scrn Negative Ur Amphetamines Screen Negative U Methamphetamines Scrn Negative Ur MDMA Scrn (Ecstasy) Negative U Benzodiazepines Scrn Negative Urine Cocaine Screen Negative U Marijuana (THC) Screen Negative COVID-19 PCR 11/19/19 11/19/19 04:45 04:45 WBC RBC Hgb Hct MCV MCH MCHC RDW Plt Count Neut % (Auto) Lymph % (Auto) [place] % (Auto) Eos % (Auto) Baso % (Auto) Neut # (Auto) Lymph # (Auto) [place] # (Auto) Eos # (Auto) Baso # (Auto) PT INR Sodium Potassium Chloride Carbon Dioxide BUN Creatinine Estimated GFR BUN/Creatinine Ratio Glucose Hemoglobin A1c 5.1 Calcium Magnesium Total Bilirubin AST ALT Alkaline Phosphatase Total Creatine Kinase CK-MB (CK-2) CK-MB (CK-2) Rel Index Troponin I NT-Pro-B Natriuret Pep Total Protein Albumin Globulin Albumin/Globulin Ratio Triglycerides 228 H Cholesterol 234 H LDL Cholesterol, Calc 157 H HDL Cholesterol 31 L TSH Prolactin Urine Color Urine Appearance Urine pH Ur Specific [place] Urine Protein Urine Glucose (UA) Urine Ketones Urine Occult Blood Urine Nitrate Urine Bilirubin Urine Urobilinogen Ur Leukocyte Esterase Urine RBC Urine WBC Urine Bacteria Ur Culture Indicated? Nasal Screen MRSA (PCR) U Opiates 300ng/mL cut Ur Oxycodone Screen Urine Methadone Screen Ur Barbiturates Screen U Tricyclic Antidepress Ur Phencyclidine Scrn Ur Amphetamines Screen U Methamphetamines Scrn Ur MDMA Scrn (Ecstasy) U Benzodiazepines Scrn Urine Cocaine Screen U Marijuana (THC) Screen COVID-19 PCR Discharge Plan Discharge Plan Patient Disposition: Home Discharge orders & Medications Prescriptions: New Eliquis 5 mg Tablet 5 mg PO BID Qty: 30 RF: 0 metoprolol succinate 25 mg capsule,sprinkle,ER 24hr 25 mg PO DAILY Qty: 30 RF: 0 Continued escitalopram oxalate 20 mg tablet 20 mg PO BEDTIME RF: 0 Follow up/Referrals: Oumou More MD [Physician] - Jolene Joseph MD [Physician] - Diet/Activity/Treatments Diet: Low-sodium and Low-cholesterol Activity: as tolerated Visit Report/Discharge Packet Instructions: DI for Atrial Flutter, Apixaban Visit Report Forms: Patient Portal/API, Stroke Signs & Symptoms Discharge Data Attending Provider: Gloria Barahona Admit Date/Time: 11/18/19 12:27 Quality VTE Deep Vein Thrombosis/Pulmonary Embolism Present on Admission: No
[2019-11-19] MEDS: APIXABAN 5 MG TABLET PO (09:15)
--- NOTE | 2019-11-19 10:04 | PC.NURSE ---
Am Shift Pt is A/o x4, ambulating with SBA in room. Pt is eager to d/c home. Echo results provided and d/c paperwork reviewed. Follow up with Dr Corea @ [facility]. Iv removed and Pt ambulated to private vehicle with .
--- NOTE | 2019-11-19 13:48 | CM.DANOTE ---
Discharge Planning/Care Management DCP: assessment: case received and EMR reviewed. Pt is a 39 year old male who admitted yesterday afternoon to care of hospitalist team. Payer: Yessi More noted at start of Team Bedside Rounds that she has already cleared him for d/c and he had left for home at before 1000 in company of his . CM Discharge Assessment Start: 11/19/19 13:45 Freq: Status: Active Protocol: Document 11/19/19 13:45 ITV (Rec: 11/19/19 13:45 ITV [id number]) Discharge Planning Assessment Advance Directives? No Advance Directives on File No History Provided By Medical Record Prior Living Arrangements House Household Members spouse Review Status In Process
== END 2019-11-19 11:00 | disposition home or self-care (01) ==
LOC: ED 12:13 → AC 12:30 → ICU 13:29
PROVIDERS: Admitting Provider Internal Medicine; Emergency Provider Emergency Medicine; Referring Provider Emergency Medicine; Visit Provider Internal Medicine
DX: R55 Syncope and collapse (principal); F32.9 Major depressive disorder, single episode, unspecified; F41.9 Anxiety disorder, unspecified; I48.91 Unspecified atrial fibrillation; E78.5 Hyperlipidemia, unspecified; W18.30XA Fall on same level, unspecified, initial encounter; Y92.002 Bathroom of unspecified non-institutional (private) residence as the place of occurrence of the external cause; Z11.59 Encounter for screening for other viral diseases
CPT/HCPCS: 36415; 71045; 80053; 80061; 80305; 81001; 81003; 82550; 82962; 83036; 83735; 83880; 84146; 84443; 84484; 85025; 85610; 87635; 87797; 93005; 93010; 93306; 96365; 96366; 99285; 99291; G0378

== ENCOUNTER 2019-12-02 15:29 | Emergency (ER) | payer OTHER, SELFPAY ==
[2019-11-18 14:02] VITALS: BMI 31.5
[2019-12-02 15:33] VITALS: BP 133/76; PULSE 64; RESP 12; TEMP 36.4; O2SAT 99
--- NOTE | 2019-12-02 15:37 | DI.RAD.S_ITS ---
PROCEDURE: XR CHEST 1V INDICATIONS: Chest pain TECHNIQUE: One view of the chest was acquired. COMPARISON: [facility], CR, XR CHEST 1V, 11/18/2019, 11:12. FINDINGS: Surgical changes and devices: None. Lungs and pleura: Lungs are clear. No pleural effusions or pneumothorax. Mediastinum: Mediastinal contours appear normal. Heart size is normal. Bones and chest wall: No suspicious bony lesions. Overlying soft tissues appear unremarkable. IMPRESSION: No acute cardiopulmonary process demonstrated radiographically. Dictated by: Aftab Hewitt M.D. on 12/02/2019 at 15:59 Approved by: Aftab Hewitt M.D. on 12/02/2019 at 16:00
[2019-12-02 15:57] LABS: INR 1.1 (0.9-1.3); Prothrombin Time 12.2 SECONDS (10.1-12.7)
[2019-12-02 16:00] LABS: PTT Partial Thromboplastin Tim 39 SECONDS (26.4-36.2)
[2019-12-02 16:01] LABS: Alanine Aminotransferase 25 IU/L (<50); Albumin 4.4 g/dL (3.5-5.0); Albumin Globulin Ratio 1.7 (1.0-2.8); Alkaline Phosphatase 54 U/L (38-126); Aspartate Aminotransferase 26 IU/L (17-59); BUN Creatinine Ratio 15.6 (6-22); Bilirubin Total 0.7 mg/dL (0.2-1.3); Blood Urea Nitrogen 17 mg/dL (9-20); Calcium 9.9 mg/dL (8.4-10.2); Carbon Dioxide 30 mmol/L (22-32); Chloride 103 mmol/L (98-107); Creatine Kinase 97 U/L (55-170); Estimated Glomerular Filt Rate > 60.0 mL/min (>60); Globulin 2.6 g/dL (1.7-4.1); Glucose 73 mg/dL (70-100); HEMOLYSIS < 15 (0-50); Lipase 113 U/L (23-300); Potassium 4.1 mmol/L (3.4-5.1); Sodium 139 mmol/L (137-145)
[2019-12-02 16:10] LABS: Add Manual Diff / Slide Review NO; Basophils Absolute Auto 100 /uL (0-100); Eosinophils Absolute Auto 400 /uL (0-450); Eosinophils Percent Auto 6.1 % (2-4); Hematocrit 45.3 % (41-53); Hemoglobin 15.2 g/dL (13.5-17.5); Lymphocytes Absolute Auto 2200 /uL (1100-4500); Lymphocytes Percent Auto 34.2 % (25-40); Mean Corpuscular HGB Conc 33.7 % (30-36); Mean Corpuscular Hemoglobin 30.4 PG (26-34); Mean Corpuscular Volume 90.3 fL (80-100); Monocytes Absolute Auto 400 /uL (0-900); Monocytes Percent Auto 6.8 % (3-14); Neutrophils Absolute Auto 3300 /uL (1500-7000); Neutrophils Percent Auto 51.9 % (50-75); Platelet Count 285 X10^3/uL (150-400); Red Blood Cell Count 5.01 X10^6/uL (4.5-5.9); Red Cell Distribution Width 12.4 % (11.6-14.8); White Blood Cell Count 6.4 X10^3/uL (4.5-11.0)
[2019-12-02 16:13] LABS: Troponin I < 0.012 ng/mL (0.01-0.034)
[2019-12-02 17:47] VITALS: BP 130/79; PULSE 54; RESP 20; O2SAT 99
--- NOTE | 2019-12-02 17:52 | ED_ITS ---
HPI - Chest Pain General Chief Complaint: Chest Pain Stated Complaint: cant catch breath, chest tightness Time Seen by Provider: 12/02/19 17:52 Source: patient and family Mode of arrival: Ambulatory Limitations: no limitations History of Present Illness HPI narrative: 39-year-old male nonsmoker with recently diagnosed AFib and syncope. He was admitted in the hospital and had a thorough evaluation was discharged on Eliquis and metoprolol. Patient had been in his normal state of health until the past few days when he started feeling significantly short of breath with even minimal exertion. He denies any chest pain but does admit to what he perceives as tightness. He is not dizzy nor weak or lightheaded. He denies any cough. He denies any abdominal pain, nausea, vomiting or diarrhea. He has no dysuria, urgency or frequency. MD complaint: other Onset (ago): day(s) Duration: constant Onset: during rest and during exertion Pain location: substernal Quality: tightness Relieving factors: nothing Exacerbating factors: nothing Associated symptoms: dyspnea Treatments prior to arrival chest pain: none Related Data Home Medications Medication Instructions Recorded Confirmed escitalopram oxalate 20 mg PO BEDTIME 11/18/19 11/18/19 Previous Rx's Medication Instructions Recorded apixaban [Eliquis] 5 mg PO BID #30 tab 11/19/19 metoprolol succinate 25 mg PO DAILY #30 each 11/19/19 Allergies Allergy/AdvReac Type Severity Reaction Status Date / Time No Known Drug Allergies Allergy Verified 12/02/19 15:38 Review of Systems Constitutional Constitutional: Denies chills, Denies fatigue, Denies fever(s), Denies frequent falls, Denies lethargy and Denies weakness Eyes Eyes: Denies change in vision, Denies eye discharge, Denies irritation and Denies loss of vision ENT Ears, Nose, Mouth, and Throat: Denies change in voice, Denies dizziness, Denies neck pain, Denies sore throat and Denies throat swelling Cardiovascular Cardiovascular: Reports chest pain, Denies irregular heart rhythm, Denies lightheadedness, Denies palpitations, Reports dyspnea, Denies dyspnea on exertion and Denies orthopnea Respiratory Respiratory: Denies cough, Reports dyspnea, Denies dyspnea on exertion and Denies wheezing Gastrointestinal Gastrointestinal: Denies abdominal pain, Denies change in bowel habits, Denies diarrhea, Denies nausea and Denies vomiting Musculoskeletal Musculoskeletal: Denies neck pain and Denies numbness Integumentary/Breasts Skin/Breast: Denies pruritus, Denies erythema, Denies rash and Denies wounds Neurologic Neurologic: Denies behavioral changes, Denies confusion, Denies dizziness, Denies frequent falls, Denies loss of vision, Denies numbness and Denies weakness Psychiatric Psychiatric: Denies anxiety, Denies behavioral changes, Denies confusion, Denies depression, Denies homicidal ideation and Denies suicidal ideation Endocrine Endocrine: Denies fatigue, Denies flushing and Denies palpitations Hematologic/Lymphatic Hematologic/Lymphatic: Denies easy bruising Allergic/Immunologic Allergic/Immunologic: Denies urticaria, Denies throat swelling and Denies wheezing Patient History Medical History Anxiety (Acute) Depression (Acute) Surgical History History of endoscopy (Acute) Family History Father Heart attack Mother Diabetes mellitus Sister Exoipdz-Amjru-Bdasy disease Brother Healthy adult Brother Healthy adult Social History household members: spouse Smoking Status: Never smoker alcohol intake: current Smoking Status: Never smoker alcohol intake frequency: 0-2 drinks per day Substance Use Type: does not use Exam Narrative Exam Narrative: GENERAL: [39] year old patient appears stated age. Well- nourished, well-developed patient, in mild distress. Anxious HEAD: Atraumatic. Normocephalic. EYES: Pupils equal round and reactive. Extraocular motions intact. No scleral icterus. No injection or drainage. ENT: Nose without bleeding, purulent drainage. Throat without erythema, tonsil lar hypertrophy or exudate. Airway patent. NECK: Trachea midline. Non tender CARDIOVASCULAR: Mildly bradycardic rhythm without murmurs, gallops, or rubs. RESPIRATORY: Clear to auscultation. Breath sounds equal bilaterally. No wheezes, rales, or rhonchi. GASTROINTESTINAL: Abdomen soft, non-tender, nondistended. EXTREMITIES: No edema or joint tenderness. BACK: Nontender without deformity or crepitance. No flank tenderness. NEURO: AOx3. SKIN: No rash or erythema of visible areas Initial Vital Signs Initial Vital Signs: Vital Signs Temperature 97.5 F L 12/02/19 15:33 Pulse Rate 64 12/02/19 15:33 Respiratory Rate 12 12/02/19 15:33 Blood Pressure 133/76 12/02/19 15:33 Pulse Oximetry 99 12/02/19 15:33 Course Course Course Narrative: discussed with on-call cardio (Teofilo). Likely symptomatic bradycardia from intolerance of metoprolol. Please hold metop until follow up, return precautions, DC Orders Ordered: ED Orders 12/02/19 15:37 XR chest 1V Stat EKG-12 Lead Stat 12/02/19 15:40 Complete Blood Count AUTO DIFF Stat Comprehensive Metabolic Panel Stat D Dimer Stat Lipase Stat NT-proBNP (BNP-Adult 18+) Stat Partial Thromboplastin Time Stat Prothrombin Time INR Stat Troponin & CK Cardiac Panel Stat 12/02/19 17:47 Troponin I Stat Vital Signs Vital signs: Vital Signs - 8 hr 12/02/19 15:33 12/02/19 17:47 Temperature 97.5 F L Pulse Rate 64 54 L Respiratory Rate 12 20 Blood Pressure 133/76 130/79 Pulse Oximetry 99 99 MDM - Chest Pain Lab Data Result diagrams: 12/02/19 15:40 12/02/19 15:40 Labs: Lab Results 12/02/19 12/02/19 12/02/19 Range/Units 15:40 15:40 15:40 WBC 6.4 (4.5-11.0) X10^3/uL RBC 5.01 (4.5-5.9) X10^6/uL Hgb 15.2 (13.5-17.5) g/dL Hct 45.3 (41-53) % MCV 90.3 (80-100) fL MCH 30.4 (26-34) PG MCHC 33.7 (30-36) % RDW 12.4 (11.6-14.8) % Plt Count 285 (150-400) X10^3/uL Neut % (Auto) 51.9 (50-75) % Lymph % (Auto) 34.2 (25-40) % Eaton % (Auto) 6.8 (3-14) % Eos % (Auto) 6.1 H (2-4) % Baso % (Auto) 1.0 (0-2) % Neut # (Auto) 3300 (3900-6918) /uL Lymph # (Auto) 2200 (5774-8603) /uL Eaton # (Auto) 400 (0-900) /uL Eos # (Auto) 400 (0-450) /uL Baso # (Auto) 100 (0-100) /uL PT 12.2 (10.1-12.7) SECONDS INR 1.1 (0.9-1.3) APTT 39 H (26.4-36.2) SECONDS D-Dimer (<230) ng/mL Sodium 139 (137-145) mmol/L Potassium 4.1 (3.4-5.1) mmol/L Chloride 103 (98-107) mmol/L Carbon Dioxide 30 (22-32) mmol/L BUN 17 (9-20) mg/dL Creatinine 1.09 (0.66-1.25) mg/dL Estimated GFR > 60.0 (>60) mL/min BUN/Creatinine Ratio 15.6 (6-22) Glucose 73 (70-100) mg/dL Calcium 9.9 (8.4-10.2) mg/dL Total Bilirubin 0.7 (0.2-1.3) mg/dL AST 26 (17-59) IU/L ALT 25 (<50) IU/L Alkaline Phosphatase 54 (38-126) U/L Total Creatine Kinase 97 (55-170) U/L CK-MB (CK-2) TNP CK-MB (CK-2) Rel Index TNP Troponin I < 0.012 (0.01-0.034) ng/mL NT-Pro-B Natriuret Pep (<125) pg/mL Total Protein 7.0 (6.3-8.2) g/dL Albumin 4.4 (3.5-5.0) g/dL Globulin 2.6 (1.7-4.1) g/dL Albumin/Globulin Ratio 1.7 (1.0-2.8) Lipase 113 (23-300) U/L 12/02/19 12/02/19 12/02/19 Range/Units 15:40 15:40 17:47 WBC (4.5-11.0) X10^3/uL RBC (4.5-5.9) X10^6/uL Hgb (13.5-17.5) g/dL Hct (41-53) % MCV (80-100) fL MCH (26-34) PG MCHC (30-36) % RDW (11.6-14.8) % Plt Count (150-400) X10^3/uL Neut % (Auto) (50-75) % Lymph % (Auto) (25-40) % Eaton % (Auto) (3-14) % Eos % (Auto) (2-4) % Baso % (Auto) (0-2) % Neut # (Auto) (5496-3247) /uL Lymph # (Auto) (4142-9684) /uL Eaton # (Auto) (0-900) /uL Eos # (Auto) (0-450) /uL Baso # (Auto) (0-100) /uL PT (10.1-12.7) SECONDS INR (0.9-1.3) APTT (26.4-36.2) SECONDS D-Dimer < 200 (<230) ng/mL Sodium (137-145) mmol/L Potassium (3.4-5.1) mmol/L Chloride (98-107) mmol/L Carbon Dioxide (22-32) mmol/L BUN (9-20) mg/dL Creatinine (0.66-1.25) mg/dL Estimated GFR (>60) mL/min BUN/Creatinine Ratio (6-22) Glucose (70-100) mg/dL Calcium (8.4-10.2) mg/dL Total Bilirubin (0.2-1.3) mg/dL AST (17-59) IU/L ALT (<50) IU/L Alkaline Phosphatase (38-126) U/L Total Creatine Kinase (55-170) U/L CK-MB (CK-2) CK-MB (CK-2) Rel Index Troponin I < 0.012 (0.01-0.034) ng/mL NT-Pro-B Natriuret Pep 26 (<125) pg/mL Total Protein (6.3-8.2) g/dL Albumin (3.5-5.0) g/dL Globulin (1.7-4.1) g/dL Albumin/Globulin Ratio (1.0-2.8) Lipase (23-300) U/L Imaging Data Chest x-ray: Radiologist's Impression: 24 Orlando Overton, DO Find Patient Imaging - Dk Storm H 39 M 1980 ACTIVITY DATE EXAM STATUS AUTHOR 12/02/19 15:37 Signed Aftab Hewitt [address] [address] XRay Report Signed Patient: Dk Storm R#: [id number] : 1980Acct:[id number] Age/Sex: 39 / MDate of Service: 12/02/19 Loc: ED Accession Number: [id number] Procedure: XR chest 1V Ordering Provider: Oz Moreno MD PROCEDURE: XR CHEST 1V INDICATIONS: Chest pain TECHNIQUE: One view of the chest was acquired. COMPARISON: [facility], , XR CHEST 1V, 11/18/2019, 11:12. FINDINGS: Surgical changes and devices: None. Lungs and pleura: Lungs are clear. No pleural effusions or pneumothorax. Mediastinum: Mediastinal contours appear normal. Heart size is normal. Bones and chest wall: No suspicious bony lesions. Overlying soft tissues appear unremarkable. IMPRESSION: No acute cardiopulmonary process demonstrated radiographically. Dictated by: Aftab Hewitt M.D. on 12/02/2019 at 15:59 Approved by: Aftab Hewitt M.D. on 12/02/2019 at 16:00 Discharge Plan Departure Patient Disposition: Home Clinical Impression: Acute dyspnea, Bradycardia Instructions: DI for Bradycardia Activity Restrictions/Additional Instructions: *You have been diagnosed with [acute dyspnea, likely secondary to symptomatic bradycardia from metoprolol] *What to do: *STOP TAKING YOUR METOPROLOL *Follow up with your Cardiolgist as planned on 12/09. Let them know you were seen in the Emergency Department and that we ask that you be seen in follow up *Return to ER if you should have any new, worsening or concerning symptoms Prescriptions: No Action escitalopram oxalate 20 mg tablet 20 mg PO BEDTIME RF: 0 Eliquis 5 mg Tablet 5 mg PO BID Qty: 30 RF: 0 metoprolol succinate 25 mg capsule,sprinkle,ER 24hr 25 mg PO DAILY Qty: 30 RF: 0
[2019-12-02 18:18] LABS: D Dimer < 200 ng/mL (<230)
[2019-12-02 18:18] LABS: Troponin I < 0.012 ng/mL (0.01-0.034)
[2019-12-02 18:25] LABS: NT-proBNP (BNP-Adult 18+) 26 pg/mL (<125)
[2019-12-02 19:00] VITALS: BP 132/74; PULSE 50; RESP 16; O2SAT 99
[2019-12-02 19:35] VITALS: BP 122/76; PULSE 52; RESP 16; O2SAT 97
== END 2019-12-02 19:35 | disposition home or self-care (01) ==
PROVIDERS: Emergency Medicine; Emergency Provider Emergency Medicine
DX: R06.00 Dyspnea, unspecified (principal); R00.1 Bradycardia, unspecified; R07.9 Chest pain, unspecified
CPT/HCPCS: 36415; 71045; 80053; 82550; 83690; 83880; 84484; 85025; 85379; 85610; 85730; 93005; 99284

== ENCOUNTER 2019-12-06 09:15 | Emergency (ER) | payer OTHER, SELFPAY ==
[2019-11-18 14:02] VITALS: BMI 31.5
[2019-12-06] VITALS (11 sets, daily range): BP systolic 103–143; BP diastolic 58–90; PULSE 54–70; RESP 14–21; O2SAT 93–99
--- NOTE | 2019-12-06 09:17 | DI.RAD.S_ITS ---
PROCEDURE: XR CHEST 1V INDICATIONS: chest pain TECHNIQUE: One view of the chest was acquired. COMPARISON: [facility], CR, XR CHEST 1V, 12/02/2019, 15:42. FINDINGS: Surgical changes and devices: None. Lungs and pleura: Lungs are clear. No pleural effusions or pneumothorax. Mediastinum: Mediastinal contours appear normal. Heart size is normal. Bones and chest wall: No suspicious bony lesions. Overlying soft tissues appear unremarkable. IMPRESSION: No acute cardiopulmonary process is evident. Dictated by: Wilian Borges M.D. on 12/06/2019 at 9:07 Approved by: Wilian Borges M.D. on 12/06/2019 at 9:08
[2019-12-06 09:32] LABS: Add Manual Diff / Slide Review NO; Basophils Absolute Auto 100 /uL (0-100); Basophils Percent Auto 1.3 % (0-2); Eosinophils Absolute Auto 400 /uL (0-450); Eosinophils Percent Auto 7.7 % (2-4); Hematocrit 44.6 % (41-53); Hemoglobin 15.4 g/dL (13.5-17.5); Lymphocytes Absolute Auto 1800 /uL (1100-4500); Lymphocytes Percent Auto 31.9 % (25-40); Mean Corpuscular HGB Conc 34.5 % (30-36); Mean Corpuscular Hemoglobin 30.9 PG (26-34); Mean Corpuscular Volume 89.5 fL (80-100); Monocytes Absolute Auto 400 /uL (0-900); Monocytes Percent Auto 7.5 % (3-14); Neutrophils Absolute Auto 2900 /uL (1500-7000); Neutrophils Percent Auto 51.6 % (50-75); Platelet Count 244 X10^3/uL (150-400); Red Blood Cell Count 4.99 X10^6/uL (4.5-5.9); Red Cell Distribution Width 12.2 % (11.6-14.8); White Blood Cell Count 5.7 X10^3/uL (4.5-11.0)
--- NOTE | 2019-12-06 09:35 | ED_ITS ---
HPI - Chest Pain General Chief Complaint: Chest Pain Stated Complaint: chest pains Time Seen by Provider: 12/06/19 09:20 Source: patient Mode of arrival: Ambulatory Limitations: no limitations History of Present Illness HPI narrative: The patient is a 39-year-old male who has been here twice recently for chest discomfort and found to have atrial fibrillation presents today with sharp chest pain. He says he noticed it last night while he was getting ready for bed. It lasted a few minutes and went away however today it came back it lasted his entire drive over here shows about 20-30 minutes and now has improved. He says he was feeling short of breath when he walks but denies shortness of breath at rest. He was previously seen here for new onset atrial fibrillation patient on metoprolol and Eliquis he returned and having reaction to metoprolol he was taken off the metoprolol but remains on Eliquis complaint: chest pain Duration: intermittent Pain location: substernal Related Data Home Medications Medication Instructions Recorded Confirmed escitalopram oxalate 20 mg PO BEDTIME 11/18/19 11/18/19 Previous Rx's Medication Instructions Recorded apixaban [Eliquis] 5 mg PO BID #30 tab 11/19/19 metoprolol succinate 25 mg PO DAILY #30 each 11/19/19 Allergies Allergy/AdvReac Type Severity Reaction Status Date / Time No Known Drug Allergies Allergy Verified 12/02/19 15:38 Review of Systems Review of Systems Narrative: GENERAL: Denies chills, fatigue, malaise, fever, sweats, travel HEENT: Denies sinus pain, ear pain, sore throat, difficulty swallowing, neck pain RESPIRATORY: Denies dyspnea, cough, wheezing, hemoptysis, sputum. CARDIOVASCULAR: See HPI GASTROINTESTINAL: Denies nausea, vomiting, abdominal pain, diarrhea, constipation, melena. : Denies dysuria, frequency, incontinence, hematuria, urinary retention, flank pain. MUSCULOSKELETAL: Denies weakness, joint pain, or bony pain SKIN: No rash, no erythema, no pruritus NEUROLOGIC: Denies weakness, dizziness, headache, numbness, change in speech, confusion PSYCHIATRIC: No concerning psychosocial issues. 12 point review of systems is negative except for those stated above and HPI Patient History Medical History Anxiety (Acute) Depression (Acute) Surgical History History of endoscopy (Acute) Family History Father Heart attack Mother Diabetes mellitus Sister Pggggxe-Selks-Gghmk disease Brother Healthy adult Brother Healthy adult Social History household members: spouse Smoking Status: Never smoker alcohol intake: current Smoking Status: Never smoker alcohol intake frequency: 0-2 drinks per day Substance Use Type: does not use Exam Initial Vital Signs Initial Vital Signs: Vital Signs Pulse Rate 70 12/06/19 09:17 Respiratory Rate 14 12/06/19 09:17 Blood Pressure 143/90 H 12/06/19 09:17 Pulse Oximetry 98 12/06/19 09:17 GENERAL: Well-appearing, well-nourished and in no acute distress. HEENT: Head atraumatic,EOMI, pupils reactive, face symmetric, moist mucous membranes CARDIOVASCULAR: Regular rate and rhythm without murmurs, rubs or gallops. RESPIRATORY: Breath sounds equal bilaterally, no wheezes rales or rhonchi. ABDOMEN: Soft, nontender. Normoactive bowel sounds all 4 quadrants. No guarding or rebound. EXTREMITIES: Normal range of motion, no clubbing or edema. Neurovascularly intact NEUROLOGICAL: Alert and oriented x4.Normal gait and speech. Cranial nerves II through XII grossly intact. SKIN: Warm, dry, no laceration, no petechiae, no rashes or lesions. Scores HEART Score Heart Score history: Moderately Suspicious Heart Score EKG: Normal Heart Score Age: < 45 years old Heart Score risk factors: No known risk factors Heart Score troponin: < or = to normal limit Heart Score Total: 1 PERC Score Age greater than or equal to 50 years: No Heart rate greater than or equal to 100 bpm: No Room Air O2 Sat less than 95%: No Unilateral leg swelling: No Recent trauma or surgery: No Hemoptysis: No Prior PE or DVT: No Hormone Use: No Total PERC Score: 0 Course Orders Ordered: ED Orders 12/06/19 09:29 Complete Blood Count AUTO DIFF Stat Comprehensive Metabolic Panel Stat Lipase Stat NT-proBNP (BNP-Adult 18+) Stat Partial Thromboplastin Time Stat Prothrombin Time INR Stat Troponin & CK Cardiac Panel Stat 12/06/19 11:59 D Dimer Stat 12/06/19 12:04 Troponin I Stat Discontinued Medications Nitroglycerin (Nitrostat) 0.4 mg SL NOW ONE Stop: 12/06/19 09:35 Last Admin: 12/06/19 09:48 Dose: 0.4 mg Documented by: BTONER Consultations Time: 11:40 Consultation #2: Paliwal- out patient stress Time: 11:57 Vital Signs Vital signs: Vital Signs - 8 hr 12/06/19 10:30 12/06/19 11:00 12/06/19 11:30 Pulse Rate 62 55 L 57 L Respiratory Rate 17 Blood Pressure 105/58 L 103/58 L 115/78 Pulse Oximetry 93 96 97 12/06/19 12:00 12/06/19 12:30 Pulse Rate 54 L 59 L Respiratory Rate Blood Pressure 110/75 113/77 Pulse Oximetry 97 97 MDM - Chest Pain Lab Data Attestation: I reviewed the patient's lab results. Result diagrams: 12/06/19 09:29 12/06/19 09:29 Labs: Lab Results 12/06/19 12/06/19 12/06/19 Range/Units 09:29 09:29 09:29 WBC 5.7 (4.5-11.0) X10^3/uL RBC 4.99 (4.5-5.9) X10^6/uL Hgb 15.4 (13.5-17.5) g/dL Hct 44.6 (41-53) % MCV 89.5 (80-100) fL MCH 30.9 (26-34) PG MCHC 34.5 (30-36) % RDW 12.2 (11.6-14.8) % Plt Count 244 (150-400) X10^3/uL Neut % (Auto) 51.6 (50-75) % Lymph % (Auto) 31.9 (25-40) % Stephens % (Auto) 7.5 (3-14) % Eos % (Auto) 7.7 H (2-4) % Baso % (Auto) 1.3 (0-2) % Neut # (Auto) 2900 (3056-1296) /uL Lymph # (Auto) 1800 (1118-4919) /uL Stephens # (Auto) 400 (0-900) /uL Eos # (Auto) 400 (0-450) /uL Baso # (Auto) 100 (0-100) /uL PT 13.1 H (10.1-12.7) SECONDS INR 1.1 (0.9-1.3) APTT 39 H (26.4-36.2) SECONDS D-Dimer (<230) ng/mL Sodium 138 (137-145) mmol/L Potassium 4.0 (3.4-5.1) mmol/L Chloride 104 (98-107) mmol/L Carbon Dioxide 28 (22-32) mmol/L BUN 19 (9-20) mg/dL Creatinine 1.03 (0.66-1.25) mg/dL Estimated GFR > 60.0 (>60) mL/min BUN/Creatinine Ratio 18.4 (6-22) Glucose 119 H (70-100) mg/dL Calcium 9.4 (8.4-10.2) mg/dL Total Bilirubin 0.7 (0.2-1.3) mg/dL AST 26 (17-59) IU/L ALT 24 (<50) IU/L Alkaline Phosphatase 61 (38-126) U/L Total Creatine Kinase 106 (55-170) U/L CK-MB (CK-2) 0.88 (<2.37) ng/mL CK-MB (CK-2) Rel Index 0.8 L (1.5-5.0) % Troponin I < 0.012 (0.01-0.034) ng/mL NT-Pro-B Natriuret Pep (<125) pg/mL Total Protein 7.1 (6.3-8.2) g/dL Albumin 4.4 (3.5-5.0) g/dL Globulin 2.7 (1.7-4.1) g/dL Albumin/Globulin Ratio 1.6 (1.0-2.8) Lipase 132 (23-300) U/L 12/06/19 12/06/19 12/06/19 Range/Units 09:29 11:59 12:04 WBC (4.5-11.0) X10^3/uL RBC (4.5-5.9) X10^6/uL Hgb (13.5-17.5) g/dL Hct (41-53) % MCV (80-100) fL MCH (26-34) PG MCHC (30-36) % RDW (11.6-14.8) % Plt Count (150-400) X10^3/uL Neut % (Auto) (50-75) % Lymph % (Auto) (25-40) % Stephens % (Auto) (3-14) % Eos % (Auto) (2-4) % Baso % (Auto) (0-2) % Neut # (Auto) (7086-2004) /uL Lymph # (Auto) (5516-4110) /uL Stephens # (Auto) (0-900) /uL Eos # (Auto) (0-450) /uL Baso # (Auto) (0-100) /uL PT (10.1-12.7) SECONDS INR (0.9-1.3) APTT (26.4-36.2) SECONDS D-Dimer < 200 (<230) ng/mL Sodium (137-145) mmol/L Potassium (3.4-5.1) mmol/L Chloride (98-107) mmol/L Carbon Dioxide (22-32) mmol/L BUN (9-20) mg/dL Creatinine (0.66-1.25) mg/dL Estimated GFR (>60) mL/min BUN/Creatinine Ratio (6-22) Glucose (70-100) mg/dL Calcium (8.4-10.2) mg/dL Total Bilirubin (0.2-1.3) mg/dL AST (17-59) IU/L ALT (<50) IU/L Alkaline Phosphatase (38-126) U/L Total Creatine Kinase (55-170) U/L CK-MB (CK-2) (<2.37) ng/mL CK-MB (CK-2) Rel Index (1.5-5.0) % Troponin I < 0.012 (0.01-0.034) ng/mL NT-Pro-B Natriuret Pep 26 (<125) pg/mL Total Protein (6.3-8.2) g/dL Albumin (3.5-5.0) g/dL Globulin (1.7-4.1) g/dL Albumin/Globulin Ratio (1.0-2.8) Lipase (23-300) U/L Imaging Data Chest x-ray: Radiologist's Impression: PROCEDURE: XR CHEST 1V INDICATIONS: chest pain TECHNIQUE: One view of the chest was acquired. COMPARISON: [facility], CR, XR CHEST 1V, 12/02/2019, 15:42. FINDINGS: Surgical changes and devices: None. Lungs and pleura: Lungs are clear. No pleural effusions or pneumothorax. Mediastinum: Mediastinal contours appear normal. Heart size is normal. Bones and chest wall: No suspicious bony lesions. Overlying soft tissues appear unremarkable. IMPRESSION: No acute cardiopulmonary process is evident. Dictated by: Wilian Borges M.D. on 12/06/2019 at 9:07 ECG Data Attestation: I personally reviewed and interpreted this ECG as follows: Prior ECG tracings: available for review Interpretation: 65 p.r. interval [address] changes or T-wave inversions similar to previous EKGs MDM Narrative Medical decision making narrative: The patient actually was admitted on November 17 for he had an echocardiogram. He has follow-up appointment with Cardiology this Friday in 4 days, I have discussed case with his records management technician whom he is seeing and at this time agrees with outpatient follow-up and stress test. He has 2-troponins and negative D-dimer. This is unlikely to be PE he has been on Eliquis since November 17 and has a negative D-dimer, no further imaging indicated. Discharge Plan Departure Patient Disposition: Home Clinical Impression: Atypical chest pain Discharge Date/Time: 12/06/19 13:13 Instructions: DI for Atypical Chest Pain Activity Restrictions/Additional Instructions: *You have been diagnosed with atypical chest pain *What to do: At this time you do need to stress test however it can be done as an outpatient and her records management technician can schedule it for you on Friday. *Continue to take medications as directed *Follow up with your primary care provider in 2-3 days *Return to ER if you should have increasing chest pain shortness of breath heart palpitations dizziness lightheadedness or any new, worsening or concerning symptoms Prescriptions: No Action escitalopram oxalate 20 mg tablet 20 mg PO BEDTIME RF: 0 Eliquis 5 mg Tablet 5 mg PO BID Qty: 30 RF: 0 metoprolol succinate 25 mg capsule,sprinkle,ER 24hr 25 mg PO DAILY Qty: 30 RF: 0 Referrals: Jolene Joseph MD [Physician] -
[2019-12-06 09:39] LABS: INR 1.1 (0.9-1.3); Prothrombin Time 13.1 SECONDS (10.1-12.7)
[2019-12-06 09:42] LABS: PTT Partial Thromboplastin Tim 39 SECONDS (26.4-36.2)
[2019-12-06 09:44] LABS: Alanine Aminotransferase 24 IU/L (<50); Albumin 4.4 g/dL (3.5-5.0); Albumin Globulin Ratio 1.6 (1.0-2.8); Alkaline Phosphatase 61 U/L (38-126); Aspartate Aminotransferase 26 IU/L (17-59); BUN Creatinine Ratio 18.4 (6-22); Bilirubin Total 0.7 mg/dL (0.2-1.3); Blood Urea Nitrogen 19 mg/dL (9-20); Calcium 9.4 mg/dL (8.4-10.2); Carbon Dioxide 28 mmol/L (22-32); Chloride 104 mmol/L (98-107); Creatine Kinase 106 U/L (55-170); Estimated Glomerular Filt Rate > 60.0 mL/min (>60); Globulin 2.7 g/dL (1.7-4.1); Glucose 119 mg/dL (70-100); HEMOLYSIS < 15 (0-50); Lipase 132 U/L (23-300); Sodium 138 mmol/L (137-145); Total Protein 7.1 g/dL (6.3-8.2)
[2019-12-06] MEDS: NITROGLYCERIN 0.4 MG SL TAB SL (09:48)
[2019-12-06 09:56] LABS: Troponin I < 0.012 ng/mL (0.01-0.034)
[2019-12-06 09:59] LABS: CKMB % Relative Index 0.8 % (1.5-5.0); Creatine Kinase MB 0.88 ng/mL (<2.37)
--- NOTE | 2019-12-06 10:04 | PC.NURSE ---
pt states on arrival chest pain was 5/10, after 20min lying back in stretcher it was 2/10 and now after nitro dose 1/10.
[2019-12-06 10:08] LABS: NT-proBNP (BNP-Adult 18+) 26 pg/mL (<125)
[2019-12-06 12:07] LABS: D Dimer < 200 ng/mL (<230)
[2019-12-06 12:39] LABS: Troponin I < 0.012 ng/mL (0.01-0.034)
[2019-12-08 01:36] LABS: COVID19 Sendout Not Detected (Not Detected)
== END 2019-12-06 13:13 | disposition home or self-care (01) ==
PROVIDERS: Emergency Provider Emergency Medicine
DX: R07.89 Other chest pain (principal); R06.02 Shortness of breath; I48.91 Unspecified atrial fibrillation; Z79.01 Long term (current) use of anticoagulants; Z03.818 Encounter for observation for suspected exposure to other biological agents ruled out
CPT/HCPCS: 36415; 71045; 80053; 82550; 82553; 83690; 83880; 84484; 85025; 85379; 85610; 85730; 87635; 93005; 99284; 99285

== ENCOUNTER 2022-03-24 15:40 | Emergency (ER) | payer OTHER, SELFPAY ==
[2022-03-24 15:41] VITALS: BMI 31.5
[2022-03-24 15:44] VITALS: BP 124/70; PULSE 75; RESP 18; TEMP 36.7; O2SAT 98; BMI 32.1
--- NOTE | 2022-03-24 15:46 | DI.RAD.S_ITS ---
PROCEDURE: XR FOOT RT MIN 3V INDICATIONS: rolled/heard pop TECHNIQUE: 3 views of the foot were acquired. COMPARISON: None. FINDINGS: Bones: There is a mildly displaced transverse fracture seen of the base of the 5th metatarsal. Soft tissues: Mild lateral soft tissue swelling is seen. IMPRESSION: Mildly displaced proximal 5th metatarsal fracture. Dictated by: John Javier M.D. on 03/24/2022 at 15:15 Approved by: John Javier M.D. on 03/24/2022 at 15:17
--- NOTE | 2022-03-24 18:09 | ED_ITS ---
HPI - Extremity Injury (Lower) General Chief Complaint: Extremity Injury, Lower Stated Complaint: Rt. foot injury/rolled Time Seen by Provider: 03/24/22 17:59 Source: patient Mode of arrival: Wheelchair History of Present Illness HPI Narrative: 41-year-old male here for evaluation of a right foot injury. He states that earlier this evening he stepped wrong and twisted his right foot. Has had discomfort with walking since then. Swelling along the outside of the right foot. He did feel like pop after the event. No prior injuries. No interventions prior to arrival. Related Data Home Medications Medication Instructions Recorded Confirmed escitalopram oxalate 20 mg tablet 20 mg PO BEDTIME 11/18/19 12/29/19 aspirin 81 mg tablet,delayed 81 mg PO DAILY 12/29/19 12/29/19 release (Adult Low Dose Aspirin) rosuvastatin 5 mg tablet 5 mg PO DAILY 12/29/19 12/29/19 Previous Rx's Medication Instructions Recorded metoprolol succinate 25 mg capsule 25 mg PO DAILY #30 ea 11/19/19 sprinkle, ext. release 24 hr Allergies Allergy/AdvReac Type Severity Reaction Status Date / Time No Known Drug Allergies Allergy Verified 12/02/19 15:38 Review of Systems Musculoskeletal Musculoskeletal: Reports system reviewed and no additional complaints, except as documented Integumentary/Breasts Skin/Breast: Reports system reviewed and no additional complaints, except as documented Neurologic Neurologic: Reports system reviewed and no additional complaints, except as documented Hematologic/Lymphatic On Anticoagulants: No Patient History Medical History Anxiety Depression Obstructive sleep apnea (01/14/20) Periodic limb movement disorder (PLMD) (~01/14/20) Snoring (~01/14/20) Surgical History History of endoscopy Family History Father Heart attack Loud snoring Hypertension Heart disease Mother Diabetes mellitus Sister Kfqadnm-Jgjmu-Afdkc disease Brother Healthy adult Brother Healthy adult Social History household members: spouse Smoking Status: Never smoker alcohol intake: current Smoking Status: Never smoker alcohol intake frequency: 0-2 drinks per day Substance Use Type: does not use Exam Initial Vital Signs Initial Vital Signs: Vital Signs Temperature 98.0 F 03/24/22 15:44 Pulse Rate 75 03/24/22 15:44 Respiratory Rate 18 03/24/22 15:44 Blood Pressure 124/70 03/24/22 15:44 Pulse Oximetry 98 03/24/22 15:44 Oxygen Delivery Method 03/24/22 15:44 Cardio Pulses: dorsalis pedis present on the right Skin General: no rashes or lesions noted Neuro Sensory Exam: no sensory deficits noted Extrem Other: No proximal fibular tenderness. No right ankle tenderness. Has tenderness over the lateral aspect of the right foot. No mediolateral malleolar tenderness. No tenderness over the Lisfranc joint. Procedures Orthopedic Splinting/Casting Injury #1: Side: right Lower Extremity Injury Location: foot Lower Extremity Immobilizer: posterior splint Post splinting neuro exam: intact Post splinting vascular exam: intact Placed by: Nursing Course Orders Ordered: Discontinued Medications Hydrocodone Bitart/Acetaminophen (Hydrocodone/Acet 5/325 Prepack) 1 bottle MISC SEEINSTR ONE Stop: 03/24/22 19:44 Last Admin: 03/24/22 19:47 Dose: 1 bottle Documented By: RHONDA Hydrocodone Bitart/Acetaminophen (Hydrocodone/Acet 5/325 Tablet) 1 tab PO NOW ONE Stop: 03/24/22 19:44 Last Admin: 03/24/22 19:47 Dose: 1 tab Documented By: RHONDA Vital Signs Vital signs: Vital Signs - 8 hr 03/24/22 19:54 Pulse Rate 70 Respiratory Rate 16 Blood Pressure 138/65 Pulse Oximetry 100 Oxygen Delivery Method Room Air MDM - Extremity Injury (Lower) Imaging Data Extremity x-ray #1: Radiologist's Impression: [address] [address] XRay Report Signed Patient: Dk Storm MR#: [id number] : 1980 Acct:[id number] Age/Sex: 41 / M Date of Service: 03/24/22 Loc: ED Accession Number: [id number] ?? Procedure: XR foot RT min 3V Ordering Provider: Agnes Ortiz MD PROCEDURE:? XR FOOT RT MIN 3V ? INDICATIONS:? rolled/heard pop ? TECHNIQUE:? 3 views of the foot were acquired.? ? COMPARISON:? None. ? FINDINGS:? ? Bones:? There is a mildly displaced transverse fracture seen of the base of the 5th metatarsal. ? Soft tissues:? Mild lateral soft tissue swelling is seen. ? ? IMPRESSION:? Mildly displaced proximal 5th metatarsal fracture. ? ? ? Dictated by: John Javier M.D. on 03/24/2022 at 15:15 ? ? Approved by: John Javier M.D. on 03/24/2022 at 15:17? MDM Narrative Medical decision making narrative: Fracture noted at the base of the 5th metatarsal. Neurovascularly intact. Placed in a posterior splint. Given crutches. Instructions for follow-up with Orthopedic surgery. He was given return precautions. He expressed understanding and agreement. Discharge Plan Departure Patient Disposition: Home Clinical Impression: Fracture of fifth metatarsal bone of right foot Instructions: How to Use Crutches, DI for Foot Fracture, How to Take Care of Your Splint Activity Restrictions/Additional Instructions: The splint that was placed this evening does need to be treated like a cast. You need to keep it on keep it clean and keep it dry. You can take Tylenol/ibuprofen for discomfort. Contact the Orthopedic Department at the number provided below for a follow-up next week. Return to the emergency d epartment for any new or worsening symptoms. Prescriptions: No Action escitalopram oxalate 20 mg tablet 20 mg PO BEDTIME metoprolol succinate 25 mg capsule,sprinkle,ER 24hr 25 mg PO DAILY Qty: 30 0RF aspirin [Adult Low Dose Aspirin] 81 mg tablet,delayed release (DR/EC) 81 mg PO DAILY rosuvastatin 5 mg tablet 5 mg PO DAILY Referrals: Venus Barkley MD [Physician] - Maxime Olmstead MD [Primary Care Provider] - Visit Report Forms: Patient Portal/API
[2022-03-24] MEDS: HYDROCODONE/ACET 5/325 PREPACK 1 BOTTLE MISC (19:47)
[2022-03-24] MEDS: HYDROCODONE/ACET 5/325 TABLET 1 TAB PO (19:47)
[2022-03-24 19:54] VITALS: BP 138/65; PULSE 70; RESP 16; O2SAT 100
== END 2022-03-24 19:55 | disposition home or self-care (01) ==
PROVIDERS: Emergency Provider Emergency Medicine
DX: S92.351A Displaced fracture of fifth metatarsal bone, right foot, initial encounter for closed fracture (principal); X50.1XXA Overexertion from prolonged static or awkward postures, initial encounter
CPT/HCPCS: 73630; 99283

== ENCOUNTER → 2025-02-03 07:35 | Outpatient (CLI) | payer OTHER, SELFPAY | LOC: PHYS 07:36 | DX: G56.00 Carpal tunnel syndrome, unspecified upper limb (principal) | CPT/HCPCS: 95885; 95886; 95910 ==

== ENCOUNTER → 2025-04-12 12:57 | Outpatient (CLI) | payer OTHER, SELFPAY ==
--- NOTE | 2025-04-12 13:00 | DI.ECHO.S_ITS ---
[facility] : : [address] : : [place] : : [id number] : : Phone: [phone] Echocardiogram Report + + :Name: DELVIS THAO Study Date: 04/12/2025 Height: 74 in : :[facility] ReadingLocation: Weight: 280 lb : : Gender: Male BSA: 2.5 m2 : :: 1980 Age: 44 yrs BP: 154/77 mmHg: :Reason For Study: VA SCREENING : :Ordering Physician: LEYDA CLARISSE : :GASPER PRADHAN Performed By: Aftab Diggs : :Referring: UNSPECIFIED : + + Interpretation Summary 1) Normal left ventricular thickness, size, wall motion, and systolic function (EF 55-60%). 2) Normal right ventricular size and function. 3) No significant valvular abnormalities. 4) Compared to the Echo done 11/18/2019, no significant change. Procedure: A two-dimensional transthoracic echocardiogram with color flow and Doppler was performed. The study quality was technically adequate. Comparison is made with the echocardiogram of 11/18/2019. The patient was in normal sinus rhythm during the exam. Left Ventricle: The left ventricle is normal in size. There is normal left ventricular wall thickness. There is no ventricular septal defect visualized. The ejection fraction is estimated to be 55-60%. There are no focal wall motion abnormalities. Diastolic parameters suggest probable normal left ventricular diastolic function and normal filling pressures. Right Ventricle: The right ventricle is normal in size and function. Atria: The left atrial size is normal. Right atrial size is normal. There is no Doppler evidence for an interatrial shunt. Mitral Valve: The mitral valve leaflets appear normal. There is no evidence of stenosis, fluttering, or prolapse. There is no mitral regurgitation noted. Aortic Valve: The aortic valve is trileaflet. The aortic valve opens well. There is no aortic valve stenosis. No aortic regurgitation is present. Tricuspid Valve: The tricuspid valve leaflets are thin and pliable. No tricuspid regurgitation. Pulmonic Valve: The pulmonic valve is not well seen, but is grossly normal. There is no pulmonic valvular regurgitation. Great Vessels: The aortic root is borderline dilated. The dimensions of the ascending aorta are normal. The pulmonary artery is not well visualized, but is probably normal size. The IVC is of normal diameter and collapses greater than 50% with a sniff. This suggests a low right atrial pressure of 3 mm Hg. Pericardium/ Pleura There is no pericardial effusion. There is no pleural effusion. MMode/2D Measurements & Calculations LVIDd: 5.2 cm LVOT diam: 2.2 cm LVIDs: 3.5 cm Ao root diam: 3.7 cm FS: 33.5 % asc Aorta Diam: 3.4 cm EPSS: 0.52 cm IVSd: 1.0 cm LVPWd: 1.1 cm LV carrillo. diameter/BSA (cm/m^2): 2.1 LV sys. diameter/BSA (cm/m^2): 1.4 LA A2 area: 18.3 cm2 RA long axis: 4.9 cm LA A4 area: 17.9 cm2 RA area: 15.1 cm2 LA length (vol): 6.3 cm RA vol: 40.0 ml LA vol: 44.0 ml RA : 16.0 ml/m2 LA vol index: 17.5 ml/m2 IVC diam: 1.5 cm RVD1 (basal): 3.9 cm RVD2 (mid): 3.5 cm TAPSE: 2.5 cm Doppler Measurements & Calculations Ao V2 max: 123.7 cm/sec LVOT Max Xavier: 115.8 cm/sec Ao V2 mean: 87.6 cm/sec LV V1 max P.4 mmHg Ao max P.1 mmHg LV V1 VTI: 24.5 cm Ao mean P.3 mmHg KIRAN(I,D): 3.7 cm2 Ao V2 VTI: 24.3 cm KIRAN(V,D): 3.5 cm2 sev ratio: 1.0 KIRAN indexed to BSA (cm^2/m^2): 1.5 MV E max xavier: 75.9 cm/sec PA V2 max: 102.5 cm/sec MV A max xavier: 62.7 cm/sec PA V2 mean: 71.5 cm/sec MV E/A: 1.2 PA mean P.3 mmHg Med Peak E' Xavier: 9.3 cm/sec PA pr(Accel): 39.6 mmHg E/E' med: 8.2 Lat Peak E' Xavier: 11.7 cm/sec E/E' lat: 6.5 E/e' average: 7.3 MV dec time: 0.26 sec SVNAIMA): 90.5 ml Reading Physician:04:15 PM
== END ==
PROVIDERS: Referring Provider Family Medicine; Visit Provider Family Medicine
DX: Z00.00 Encounter for general adult medical examination without abnormal findings (principal)
CPT/HCPCS: 93306